=== PATIENT | male | born 1950 | race Caucasian/White ===

== ENCOUNTER 2020-02-18 10:42 | Emergency (ER) | payer MEDICARE, OTHER ==
[~2020-02-18] VITALS: Ht 182.9 cm; Wt 99.8 kg
--- NOTE | 2020-02-18 10:42 | NUR ---
CAME IN FOR R KNEE SWELLING, PAIN AND REDNESS STARTED YESTERDAY, TO ER BED 9, HOOKED TO MONITOR, PRIVATE SECRETARY ESVIN SANCHEZ AT BEDSIDE.
[2020-02-18] MEDS ORDERED: LIDOCAINE 1%-EPI 1:100,000 20 ML VIAL ONE (10:45)
[2020-02-18] MEDS: LIDOCAINE 1%-EPI 1:100,000 50 ML VIAL IJ ONE ×2 (10:56→11:10)
[2020-02-18] MEDS ORDERED: TRIAMCINOLONE ACETONIDE SUSP 40 MG/ML 1 ML IJ ONE (11:00)
[2020-02-18] MEDS ORDERED: BUPIVACAINE 0.5 % PF 150 MG/30 ML VIAL IJ ONE (11:00)
[2020-02-18] MEDS ORDERED: LIDOCAINE 1% INJ 50 ML MDV IJ ONE (11:01)
--- NOTE | 2020-02-18 11:11 | NUR ---
POLLY SANCHEZ AT BEDSIDE FOR PROCEDURE
[2020-02-18] MEDS ORDERED: LIDOCAINE /MPF 1% VIAL 5 ML VIAL IJ ONE (11:30)
[2020-02-18] MEDS ORDERED: MELOXICAM 7.5 MG TABLET PO ONE (12:00)
--- NOTE | 2020-02-18 12:07 | NUR ---
Patient discharged to home in stable condition. Written and verbal after care instructions given. Patient verbalizes understanding of instruction.
[2020-02-18 12:08] VITALS: BP 143/76
== END 2020-02-18 12:08 | disposition home or self-care (01) ==
LOC: ER 10:43
DX: L03.115 Cellulitis of right lower limb (principal); M25.561 Pain in right knee; I10 Essential (primary) hypertension; E11.9 Type 2 diabetes mellitus without complications; J45.909 Unspecified asthma, uncomplicated
CPT/HCPCS: 20610; 36415; 87070; 89051; 99284; A6403; J3490 ×3; 87075-TC